=== PATIENT | male | born 1975 | race Caucasian/White ===

== ENCOUNTER → 2016-05-31 | Outpatient (CLI) | payer OTHER, BC ==
--- NOTE | 2016-06-02 13:21 | MR ---
EXAM DATE: 05/31/16 PATIENT'S AGE: 41 Patient: MORGAN ARCEO Facility: [facility] Site . Site : [id number] Study: MRI-Spine Lumbar [id number] 5:20:27 PM Ordering Physician: Abi Agudelo Final Report: Indication: Low back pain. Comparison: None. Technique: Sagittal T1, T2 and STIR sequences. Axial T1 and T2 weighted sequences. Findings: Normal vertebral body alignment. No fractures. No vertebral body loss of height. No spondylolisthesis. No ligamentous injury. Normal marrow signal. Normal conus terminates at L1. T12-L1, L1-2 and L2-3: No spinal canal or neural foraminal narrowing. L3-4: No spinal canal or neural foraminal narrowing. L4-5: Disc degeneration with loss disc height. Posterior disc bulge. No narrowing of the spinal canal. No neural foraminal narrowing. Mild bilateral facet arthropathy. L5-S1: Disk degeneration with loss of disc height. Diffuse disc bulge. No narrowing of spinal canal. No impingement of the traversing S1 nerve roots. No neural foraminal narrowing. Mild bilateral facet arthropathy. Normal paraspinal soft tissues. Impression: 1. Normal alignment. No fractures. No spondylolisthesis. 2. At L5-S1, disk degeneration with diffuse disc bulge. No narrowing of the spinal canal. No neural foraminal narrowing. 3. At L4-5, disk degeneration with posterior disk bulge. No spinal canal or neural foraminal narrowing 4. No spinal canal or neural foraminal narrowing at the remaining levels Dictated by Aubrey Mancini MD @ Jun 01 2016 8:26AM Signed by: Aubrey Mancini MD @06/01/2016 8:32:54 AM (Electronic Signature) Report Signed by Proxy and Original Signed Document filed in the Medical Record. [facility]
== END ==
LOC: MW.MRI 16:29
PROVIDERS: ATTEND Family Medicine
DX: M54.5 Low back pain (principal); M51.37 Other intervertebral disc degeneration, lumbosacral region
CPT/HCPCS: 72148; 72148-26

== ENCOUNTER → 2016-06-28 | Outpatient (CLI) | payer BC ==
--- NOTE | 2016-07-01 17:22 | NM ---
EXAM DATE: 06/28/16 PATIENT'S AGE: 41 Addendum: Additional imaging was obtained at rest following the administration of 26.4 mCi of technetium 99 M. Findings/impression: The minimal decreased uptake along the inferior wall is slightly more prominent on the stress imaging however there is also a slightly increased level of the adjacent uptake within the liver noted on the rest imaging. A trace myocardial ischemia cannot be excluded. Ejection fraction at rest is 61%. Wall motion appears unchanged. EXAMINATION: Nuclear medicine myocardial perfusion study with exercise stress test. HISTORY: Chest pain. PROCEDURE: Patient exercised according to Gm protocol for 9 minutes and 11 seconds and achieved maximal heart rate of 18 beats per minute. Adequate exercise. Following intravenous administration of 26.3 mCi of technetium 99m sestamibi, stress and rest SPECT images including gating imaging was performed. FINDINGS: Stress and rest myocardial SPECT images demonstrates minimally decreased uptake along the inferior wall, appearing source images this likely represents diaphragmatic attenuation. Review of gated images demonstrates normal wall motion, contractility and wall thickening. The left ventricular ejection fraction is 62 %. The left ventricular chamber size is normal. IMPRESSION: 1. No evidence of myocardial ischemia. 2. Normal ventricular chamber size and function with ejection fraction of 62%. MTDD
== END ==
LOC: MW.NM 08:10
PROVIDERS: ATTEND Internal Medicine
DX: R07.9 Chest pain, unspecified (principal)
CPT/HCPCS: 78451; A9500

== ENCOUNTER 2019-09-18 21:45 | Emergency (ER) | payer BC ==
[2019-09-18] MEDS ORDERED: Sodium Chloride 0.9% 2.5 ML Syringe FLUSH PRN (21:51)
[2019-09-18] MEDS ORDERED: Sodium Chloride 0.9% 10 ML Syringe FLUSH PRN (21:51)
[2019-09-18] MEDS ORDERED: Aspirin 81 MG Tab.Chew PO ONE (21:51)
--- NOTE | 2019-09-18 21:55 | EDM.PDOC ---
ED HPI GENERAL MEDICAL PROBLEM - General Chief Complaint: Chest Pain Stated Complaint: CHEST PAIN Time Seen by Provider: 09/18/19 21:51 - History of Present Illness INITIAL COMMENTS - FREE TEXT/NARRATIVE: History of present illness: [] The patient began to have left anterior chest pain at 2 PM today. Is rather constant. Is rather dull and mild. It feels like indigestion. There are no associated symptoms. He is a non-smoker. His father had a 5 vessel bypass but his father had his onset of symptomatic coronary vessel disease in older age. The patient is not treated for diabetes hypertension or cholesterol. There is i ncreased urination lately Review of systems: As per history of present illness and below otherwise all systems reviewed and negative. Past medical history: As per history of present illness and as reviewed below otherwise noncontributory. Surgical history: As per history of present illness and as reviewed below otherwise noncontributory. Social history: No reported history of drug or alcohol abuse. Family history: As per history of present illness and as reviewed below otherwise noncontributory. Physical exam: Constitutional - well developed, well-nourished and in no acute distress HEENT - normocephalic, no evidence of trauma - external nose and mouth normal - no mass in neck and no JVD - mucosae moist EYES - full EOM, PERRL, no icterus - no evidence of inflammation, injection, or drainage Respiratory - no respiratory distress, equal bilateral expansion, lungs clear to auscultation and no abnormal lung sounds Cardiovascular - Regular Rhythm with S1 and S2 appreciated and no murmur, gallop or rub. Peripheral pulses symmetrically normal in all four extremities GI - abdomen soft without distension or organomegaly - normal bowel sounds - no guard or rebound Musculoskeletal no gross deformity of long bones or joints - no tenderness, except as follows swelling or edema -tender in the rectus abdominal muscles in the left upper abdomen. Pain worse with movement. Neurologic - Alert and oriented times four - CN II-XII grossly intact - motor sensory and coordination symmetrically normal Psychiatric - appropriate mood and affect with normal thought content Hematologic - No petechiae or purpura - mucosa appropriate color and sclera not pale - normal nail bed color and refill Integument - no rash or evidence of trauma - normal turgor Diagnostics: [] Therapeutics: [] Impression: [] Plan: [] Definitive disposition and diagnosis as appropriate pending reevaluation and review of above. chest pain Pain Score (Numeric/FACES): 6 - Related Data Allergies Allergy/AdvReac Type Severity Reaction Status Date / Time No Known Allergies Allergy Verified 09/18/19 21:51 Home Meds: Home Meds Ascorbic Acid [Vitamin C] 1,000 mg PO DAILY 04/11/15 [History] Multivitamin [Multi-Vitamin Daily] 1 each PO DAILY 04/11/15 [History] Omeprazole 1 tab PO DAILY 06/02/15 [History] Past Medical History HEENT History: Reports: None Cardiovascular History: Reports: None Respiratory History: Reports: None Gastrointestinal History: Reports: GERD Genitourinary History: Reports: None Musculoskeletal History: Reports: Other (See Below) Other Musculoskeletal History: Tendon tear in left shoulder Neurological History: Reports: None Psychiatric History: Reports: None Endocrine/Metabolic History: Reports: None Hematologic History: Reports: None Immunologic History: Reports: None Oncologic (Cancer) History: Reports: None Dermatologic History: Reports: None - Infectious Disease History Infectious Disease History: Reports: None - Past Surgical History HEENT Surgical History: Reports: Oral Surgery Social & Family History - Family History Family Medical History: Noncontributory ED ROS GENERAL - Review of Systems Review Of Systems: Comprehensive ROS is negative, except as noted in HPI. ED EXAM, GENERAL - Physical Exam Exam: See Below Free Text/Narrative:: Physical exam as in the HPI EKG INTERPRETATION EKG Date: 09/18/19 Rhythm: NSR Rate (Beats/Min): 76 QRS: Normal Comparison: NA - No Prior EKG EKG Interpretation Comments: No acute injury Course - Vital Signs Last Recorded V/S: Last Vital Signs Temp 96.5 F L 09/18/19 21:45 Pulse 80 09/18/19 21:45 Resp 18 09/18/19 21:45 BP 152/83 H 09/18/19 21:45 Pulse Ox 98 09/18/19 21:45 - Orders/Labs/Meds Orders: Active Orders 24 hr Category Date Time Status Cardiac Monitoring [RC] . DIRECTED Care 09/18/19 21:51 Active EKG Documentation Completion [RC] STAT Care 09/18/19 21:51 Active Oxygen Therapy [RC] ASDIRECTED Care 09/18/19 21:51 Active Pulse Oximetry [RC] ASDIRECTED Care 09/18/19 21:51 Active Sodium Chloride 0.9% [Saline Flush] Med 09/18/19 21:51 Active 10 ml FLUSH ASDIRECTED PRN Sodium Chloride 0.9% [Saline Flush] Med 09/18/19 21:51 Active 2.5 ml FLUSH ASDIRECTED PRN Saline Lock Insert [OM.PC] Stat Oth 09/18/19 21:51 Ordered Medication Orders Sodium Chloride (Saline Flush) 10 ml FLUSH ASDIRECTED PRN PRN Reason: Keep Vein Open Sodium Chloride (Saline Flush) 2.5 ml FLUSH ASDIRECTED PRN PRN Reason: Keep Vein Open Labs: Laboratory Tests 09/18/19 09/18/19 09/18/19 Range/Units 21:51 21:51 22:00 WBC 7.97 (4.0-11.0) K/uL RBC 5.50 (4.50-5.90) M/uL Hgb 16.5 (13.0-17.0) g/dL Hct 49.7 (38.0-50.0) % MCV 90.4 (80.0-98.0) fL MCH 30.0 (27.0-32.0) pg MCHC 33.2 (31.0-37.0) g/dL RDW Std Deviation 41.3 (28.0-62.0) fl RDW Coeff of Maggy 12 (11.0-15.0) % Plt Count 244 (150-400) K/uL MPV 9.20 (7.40-12.00) fL Neut % (Auto) 64.2 (48.0-80.0) % Lymph % (Auto) 26.2 (16.0-40.0) % [facility] % (Auto) 7.8 (0.0-15.0) % Eos % (Auto) 1.3 (0.0-7.0) % Baso % (Auto) 0.5 (0.0-1.5) % Neut # (Auto) 5.1 (1.4-5.7) K/uL Lymph # (Auto) 2.1 (0.6-2.4) K/uL [facility] # (Auto) 0.6 (0.0-0.8) K/uL Eos # (Auto) 0.1 (0.0-0.7) K/uL Baso # (Auto) 0.0 (0.0-0.1) K/uL Nucleated RBC % 0.0 /100WBC Nucleated RBCs # 0 K/uL Sodium 140 (136-148) mmol/L Potassium 3.4 L (3.5-5.1) mmol/L Chloride 100 (98-107) mmol/L Carbon Dioxide 27.6 (21.0-32.0) mmol/L BUN 10 (7.0-18.0) mg/dL Creatinine 1.0 (0.8-1.3) mg/dL Est Cr Clr Drug Dosing 95.25 mL/min Estimated GFR (MDRD) > 60.0 ml/min Glucose 95 (74-106) mg/dL Calcium 9.8 (8.5-10.1) mg/dL Total Bilirubin 0.8 (0.2-1.0) mg/dL AST 27 (15-37) IU/L ALT 39 (14-63) IU/L Alkaline Phosphatase 85 (46-116) U/L Troponin I < 0.050 (0.000-0.056) ng/mL Total Protein 8.5 H (6.4-8.2) g/dL Albumin 4.6 (3.4-5.0) g/dL Globulin 3.9 (2.6-4.0) g/dL Albumin/Globulin Ratio 1.2 (0.9-1.6) Lipase 78 (73-393) U/L Urine Color YELLOW Urine Appearance CLEAR Urine pH 6.5 (5.0-8.0) Ur Specific [place] 1.025 (1.001-1.035) Urine Protein NEGATIVE (NEGATIVE) mg/dL Urine Glucose (UA) NEGATIVE (NEGATIVE) mg/dL Urine Ketones NEGATIVE (NEGATIVE) mg/dL Urine Occult Blood TRACE-INTACT H (NEGATIVE) Urine Nitrite NEGATIVE (NEGATIVE) Urine Bilirubin NEGATIVE (NEGATIVE) Urine Urobilinogen 0.2 (<2.0) EU/dL Ur Leukocyte Esterase NEGATIVE (NEGATIVE) Urine RBC 0-2 (0-2/HPF) Urine WBC 0-1 (0-5/HPF) Ur Epithelial Cells RARE (NONE-FEW) Urine Bacteria RARE (NEGATIVE) Meds: Medications Generic Name Dose Route Start Last Admin Trade Name Freq PRN Reason Stop Dose Admin Sodium Chloride 10 ml 06/30/20 21:51 Saline Flush FLUSH ASDIRECTED PRN Keep Vein Open Sodium Chloride 2.5 ml 09/18/19 21:51 Saline Flush FLUSH ASDIRECTED PRN Keep Vein Open Discontinued Medications Generic Name Dose Route Start Last Admin Trade Name Zhanna PRN Reason Stop Dose Admin Aspirin 324 mg 09/18/19 21:51 09/18/19 22:13 Aspirin PO 09/18/19 21:52 324 mg ONETIME ONE Administration Departure - Departure Time of Disposition: 22:42 Disposition: Home, Self-Care 01 Condition: Good Clinical Impression: Musculoskeletal pain - Discharge Information Instructions: Musculoskeletal Pain Forms: ED Department Discharge Additional Instructions: The following information is given to patients seen in the emergency department who are being discharged to home. This information is to outline your options for follow-up care. We provide all patients seen in our emergency department with a follow-up referral. The need for follow-up, as well as the timing and circumstances, are variable depending upon the specifics of your emergency department visit. If you don't have a primary care physician on staff, we will provide you with a referral. We always advise you to contact your personal physician following an emergency department visit to inform them of the circumstance of the visit and for follow-up with them and/or the need for any referrals to a consulting specialist. The emergency department will also refer you to a specialist when appropriate. This referral assures that you have the opportunity for follow-up care with a specialist. All of these measure are taken in an effort to provide you with optimal care, which includes your follow-up. Under all circumstances we always encourage you to contact your private physician who remains a resource for coordinating your care. When calling for follow-up care, please make the office aware that this follow-up is from your recent emergency room visit. If for any reason you are refused follow-up, please contact the [facility] Emergency Department at and asked to speak to the emergency department charge nurse. Temo Hidalgo [facility] [address] [place] [id number] [address] Sepsis Event Note (ED) - Focused Exam Vital Signs: Vital Signs Temp Pulse Resp BP Pulse Ox 09/18/19 21:45 96.5 F L 80 18 152/83 H 98 - My Orders Last 24 Hours: My Active Orders 09/18/19 21:51 Cardiac Monitoring [RC] . DIRECTED EKG Documentation Completion [RC] STAT Oxygen Therapy [RC] ASDIRECTED Pulse Oximetry [RC] ASDIRECTED Sodium Chloride 0.9% [Saline Flush] 10 ml FLUSH ASDIRECTED PRN Sodium Chloride 0.9% [Saline Flush] 2.5 ml FLUSH ASDIRECTED PRN Saline Lock Insert [OM.PC] Stat - Assessment/Plan Last 24 Hours: My Active Orders 09/18/19 21:51 Cardiac Monitoring [RC] . DIRECTED EKG Documentation Completion [RC] STAT Oxygen Therapy [RC] ASDIRECTED Pulse Oximetry [RC] ASDIRECTED Sodium Chloride 0.9% [Saline Flush] 10 ml FLUSH ASDIRECTED PRN Sodium Chloride 0.9% [Saline Flush] 2.5 ml FLUSH ASDIRECTED PRN Saline Lock Insert [OM.PC] Stat
--- NOTE | 2019-09-18 22:25 | CR ---
INDICATION: Chest pain TECHNIQUE: Chest radiograph 2 views COMPARISON: 06/02/15 FINDINGS: Mediastinum: The mediastinum is normal in appearance. The heart silhouette is normal in size and morphology. Lung: Both lungs are unremarkable in appearance. No sign of pleural effusion seen. No pneumothorax is identified. Bone and Soft tissue: Unremarkable for age. IMPRESSION: 1. No acute cardiopulmonary disease is seen. Dictated by: Alpesh Mcmahon MD @ 09/18/2019 22:23:32 (Electronically Signed)
[2019-09-18 22:32] LABS: BLOOD UREA NITROGEN,BUN 10 mg/dL (7.0-18.0); CARBON DIOXIDE,CO2 27.6 mmol/L (21.0-32.0); CHLORIDE,CL 100 mmol/L (98-107); GLUCOSE RANDOM 95 mg/dL (74-106); LIPASE 78 U/L (73-393); POTASSIUM,K 3.4 mmol/L (3.5-5.1); SODIUM,NA 140 mmol/L (136-148)
[2019-09-18 23:09] VITALS: BP 131/84; PULSE 78
== END 2019-09-18 23:05 | disposition home or self-care (01) ==
LOC: MW.ED 21:45
DX: R10.12 Left upper quadrant pain (principal); K21.9 Gastro-esophageal reflux disease without esophagitis; Z79.899 Other long term (current) drug therapy
CPT/HCPCS: 36415; 71045; 80053; 81001; 83690; 84484; 85025; 93005; 99285; A9270; 99282

== ENCOUNTER 2019-12-04 15:56 | Inpatient (IN) | payer BC ==
[2019-12-04 18:27] LABS: BLOOD UREA NITROGEN,BUN 10 mg/dL (7.0-18.0); CARBON DIOXIDE,CO2 27.9 mmol/L (21.0-32.0); CHLORIDE,CL 102 mmol/L (98-107); GLUCOSE RANDOM 98 mg/dL (74-106); POTASSIUM,K 4.1 mmol/L (3.5-5.1); SODIUM,NA 138 mmol/L (136-148)
--- NOTE | 2019-12-04 18:57 | EDM.PDOC ---
ED HPI GENERAL MEDICAL PROBLEM - General Chief Complaint: Genitourinary Problem Stated Complaint: PAIN IN BLADDER Time Seen by Provider: 12/04/19 16:49 Source of Information: Reports: Patient History Limitations: Reports: No Limitations - History of Present Illness INITIAL COMMENTS - FREE TEXT/NARRATIVE: Presents reporting dysuria and hematuria. The patient states about 10:00 this morning he had some urinary urgency and frequency as well as pain in the bladder area and then noticed blood in his urine. He had no back pain or fever. No personal or family history of kidney stones. He has never had this problem before. He states that he is sexually active with his of 25 years and has no STD concerns. He does state his had reported some dysuria/female symptoms and they did have intercourse yesterday. His only medical problem is GERD for which he takes omeprazole. bladder Pain Score (Numeric/FACES): 6 - Related Data Allergies Allergy/AdvReac Type Severity Reaction Status Date / Time No Known Allergies Allergy Verified 12/04/19 16:37 Home Meds: Home Meds Ascorbic Acid [Vitamin C] 1,000 mg PO DAILY 04/11/15 [History] Multivitamin [Multi-Vitamin Daily] 1 each PO DAILY 04/11/15 [History] Omeprazole 1 tab PO DAILY 06/02/15 [History] cephALEXin [Keflex] 500 mg PO TID 7 Days #20 capsule 12/04/19 [Rx] Past Medical History HEENT History: Reports: None Cardiovascular History: Reports: None Respiratory History: Reports: None Gastrointestinal History: Reports: GERD Genitourinary History: Reports: None Musculoskeletal History: Reports: Other (See Below) Other Musculoskeletal History: Tendon tear in left shoulder Neurological History: Reports: None Psychiatric History: Reports: None Endocrine/Metabolic History: Reports: None Insulin Pump Model and Hand Candy Dipper: None Hematologic History: Reports: None Immunologic History: Reports: None Oncologic (Cancer) History: Reports: None Dermatologic History: Reports: None - Infectious Disease History Infectious Disease History: Reports: Chicken Pox - Past Surgical History Head Surgeries/Procedures: Reports: None HEENT Surgical History: Reports: Oral Surgery Social & Family History - Family History Family Medical History: Noncontributory - Tobacco Use Smoking Status *Q: Never Smoker - Caffeine Use Caffeine Use: Reports: None - Recreational Drug Use Recreational Drug Use: No ED ROS GENERAL - Review of Systems Review Of Systems: Comprehensive ROS is negative, except as noted in HPI. ED EXAM, RENAL/ - Physical Exam Exam: See Below Exam Limited By: No Limitations General Appearance: Alert, No Apparent Distress Ears: Normal External Exam Nose: Normal Inspection Throat/Mouth: Normal Inspection Head: Atraumatic Neck: Normal Inspection Respiratory/Chest: No Respiratory Distress, Lungs Clear, Normal Breath Sounds Cardiovascular: Normal Peripheral Pulses, Regular Rate, Rhythm GI/Abdominal: Normal Bowel Sounds, Soft, Non-Tender, No Organomegaly, No Distention Course - Vital Signs Last Recorded V/S: Last Vital Signs Temp 36.4 C 12/04/19 16:38 Pulse 124 H 12/04/19 16:38 Resp 20 12/04/19 16:38 BP 132/84 12/04/19 16:38 Pulse Ox 97 12/04/19 16:38 - Orders/Labs/Meds Orders: Active Orders 24 hr Category Date Time Status Abdomen Pelvis wo Cont [CT] Stat Exams 12/04/19 17:38 Ordered Labs: Laboratory Tests 12/04/19 12/04/19 12/04/19 Range/Units 16:20 17:57 17:57 WBC 9.48 (4.0-11.0) K/uL RBC 4.79 (4.50-5.90) M/uL Hgb 14.4 (13.0-17.0) g/dL Hct 43.7 (38.0-50.0) % MCV 91.2 (80.0-98.0) fL MCH 30.1 (27.0-32.0) pg MCHC 33.0 (31.0-37.0) g/dL RDW Std Deviation 43.0 (28.0-62.0) fl RDW Coeff of Maggy 13 (11.0-15.0) % Plt Count 229 (150-400) K/uL MPV 8.40 (7.40-12.00) fL Neut % (Auto) 76.9 (48.0-80.0) % Lymph % (Auto) 13.2 L (16.0-40.0) % [place] % (Auto) 9.3 (0.0-15.0) % Eos % (Auto) 0.3 (0.0-7.0) % Baso % (Auto) 0.3 (0.0-1.5) % Neut # (Auto) 7.3 H (1.4-5.7) K/uL Lymph # (Auto) 1.3 (0.6-2.4) K/uL [place] # (Auto) 0.9 H (0.0-0.8) K/uL Eos # (Auto) 0.0 (0.0-0.7) K/uL Baso # (Auto) 0.0 (0.0-0.1) K/uL Nucleated RBC % 0.0 /100WBC Nucleated RBCs # 0 K/uL Sodium 138 (136-148) mmol/L Potassium 4.1 (3.5-5.1) mmol/L Chloride 102 (98-107) mmol/L Carbon Dioxide 27.9 (21.0-32.0) mmol/L BUN 10 (7.0-18.0) mg/dL Creatinine 0.9 (0.8-1.3) mg/dL Est Cr Clr Drug Dosing 102.39 mL/min Estimated GFR (MDRD) > 60.0 ml/min Glucose 98 (74-106) mg/dL Calcium 8.8 (8.5-10.1) mg/dL Total Bilirubin 0.7 (0.2-1.0) mg/dL AST 23 (15-37) IU/L ALT 32 (14-63) IU/L Alkaline Phosphatase 91 (46-116) U/L Total Protein 8.1 (6.4-8.2) g/dL Albumin 4.1 (3.4-5.0) g/dL Globulin 4.0 (2.6-4.0) g/dL Albumin/Globulin Ratio 1.0 (0.9-1.6) Urine Color RED Urine Appearance CLOUDY Urine pH 7.5 (5.0-8.0) Ur Specific [place] >= 1.030 (1.001-1.035) Urine Protein 100 H (NEGATIVE) mg/dL Urine Glucose (UA) NEGATIVE (NEGATIVE) mg/dL Urine Ketones NEGATIVE (NEGATIVE) mg/dL Urine Occult Blood LARGE H (NEGATIVE) Urine Nitrite NEGATIVE (NEGATIVE) Urine Bilirubin NEGATIVE (NEGATIVE) Urine Urobilinogen 0.2 (<2.0) EU/dL Ur Leukocyte Esterase NEGATIVE (NEGATIVE) Urine RBC TOO NUMEROUS TO CT (0-2/HPF) Urine WBC 3-5 (0-5/HPF) Ur Epithelial Cells RARE (NONE-FEW) Urine Bacteria RARE (NEGATIVE) Urinalysis Comment - Re-Assessments/Exams Free Text/Narrative Re-Assessment/Exam: 12/04/19 20:[address] Guan including history, lab and imaging findings. The patient does not smoke. He does complain of dysuria. He is anxious about the blood. Departure - Departure Time of Disposition: 20:08 Disposition: Home, Self-Care 01 Condition: Fair Clinical Impression: Hematuria Qualifiers: Hematuria type: gross Qualified Code(s): R31.0 - Gross hematuria - Discharge Information Referrals: Stefan Kapadia MD [Primary Care Provider] - [facility] [Outside] Additional Instructions: The following information is given to patients seen in the emergency department who are being discharged to home. This information is to outline your options for follow-up care. We provide all patients seen in our emergency department with a follow-up referral. The need for follow-up, as well as the timing and circumstances, are variable depending upon the specifics of your emergency department visit. If you don't have a primary care physician on staff, we will provide you with a referral. We always advise you to contact your personal physician following an emergency department visit to inform them of the circumstance of the visit and for follow-up with them and/or the need for any referrals to a consulting s pecialist. The emergency department will also refer you to a specialist when appropriate. This referral assures that you have the opportunity for follow-up care with a specialist. All of these measure are taken in an effort to provide you with optimal care, which includes your follow-up. Under all circumstances we always encourage you to contact your private physician who remains a resource for coordinating your care. When calling for follow-up care, please make the office aware that this follow-up is from your recent emergency room visit. If for any reason you are refused follow-up, please contact the [facility] Emergency Department at and asked to speak to the emergency department charge nurse. 1. Call Dr. Almaraz's office in the morning to make an appointment for further evaluation and management. His office has been alerted that you were seen in the emergency room tonight. 2. If you cannot urinate, return to the emergency room. 3. Although there were no concrete signs of infection in your urine and your white count was normal, take Keflex 3 times a day for 7 days or until further directed by Dr. Almaraz. 4. Drink large amounts of oral fluids to flush your bladder. 5. 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 Take as directed for bladder discomfort. Sepsis Event Note (ED) - Evaluation Sepsis Screening Result: No Definite Risk - Focused Exam Vital Signs: Vital Signs Temp Pulse Resp BP Pulse Ox 12/04/19 16:38 36.4 C 124 H 20 132/84 97 - My Orders Last 24 Hours: My Active Orders 12/04/19 17:38 Abdomen Pelvis wo Cont [CT] Stat - Assessment/Plan Last 24 Hours: My Active Orders 12/04/19 17:38 Abdomen Pelvis wo Cont [CT] Stat
--- NOTE | 2019-12-04 19:09 | CT ---
CT abdomen and pelvis Technique: Multiple axial sections were obtained from below the dome of the diaphragm inferiorly through the pubic symphysis. Intravenous contrast and oral contrast not utilized. Findings: Kidneys show no abnormal calcifications. No ureteral dilatation or ureteral stone is seen. Bladder is not well distended. There is slight haziness around the bladder as well as bladder wall thickening. Difficult to exclude cystitis but please correlate with the patient's symptoms as this may relate to under distention. Visualized lung bases shows nothing acute. Noncontrast appearance of the liver shows fatty infiltration. Spleen appears normal in size. Adrenal glands show no nodule. Pancreas shows no discrete abnormality. Gallbladder contains no calcified gallstones. Aorta shows no aneurysm. No retroperitoneal adenopathy or mesenteric abnormalities are seen. Appendix is seen and appears normal in size. No pelvic mass or adenopathy is seen. Bone window settings were reviewed which appear within normal limits for the patient's age. Impression: 1. No renal calculi, ureteral dilatation or ureteral stone is seen. 2. Slight haziness around the bladder is seen as well as slight bladder wall thickening. This could represent cystitis and please correlate with the patient's symptoms as findings could also relate to lack of distention. 3. Other nonacute findings as noted above. Diagnostic code #3 This report was dictated in MDT
[2019-12-04] MEDS ORDERED: fentaNYL 100 MCG/2 ML SDV IVPUSH ONE (19:58)
[2019-12-04] MEDS ORDERED: Sodium Chloride 0.9% 1,000 ML IV ONE ×2 (19:58→22:31)
[2019-12-04] MEDS ORDERED: Cephalexin 500 MG Cap PO ONE (19:59)
[2019-12-04] MEDS ORDERED: Morphine 4 MG/ML Syringe IVPUSH ONE (23:01)
[2019-12-04] MEDS ORDERED: Metoprolol Tartrate 5 MG in Sodium Chloride 0.9% 50 ML IV ONE (23:01)
[2019-12-04] MEDS ORDERED: Metoprolol Tartrate 5 MG/5 ML SDV ONE (23:08)
[2019-12-04] MEDS ORDERED: Metoprolol Tartrate 5 MG/5 ML SDV IVPUSH ONE (23:29)
[2019-12-05] MEDS ORDERED: cefTRIAXone 1 GM in Premix Bag 1 BAG IV ONE (01:30)
[2019-12-05] MEDS: Morphine 2 MG/ML SYRINGE IVPUSH PRN ×3 (02:37→09:15)
[2019-12-05] MEDS: Sodium Chloride 0.9% 1,000 ML IV SCH ×2 (02:41→10:51)
[2019-12-05 05:48] LABS: BLOOD UREA NITROGEN,BUN 10 mg/dL (7.0-18.0); CARBON DIOXIDE,CO2 26.6 mmol/L (21.0-32.0); CHLORIDE,CL 100 mmol/L (98-107); GLUCOSE RANDOM 118 mg/dL (74-106); SODIUM,NA 137 mmol/L (136-148)
[2019-12-05] MEDS: Acetaminophen 500 MG Tab PO PRN ×2 (08:35→21:25)
[2019-12-05] MEDS ORDERED: Azithromycin 250 MG Tab PO ONE (09:55)
--- NOTE | 2019-12-05 11:28 | PCM.HP.2 ---
H&P History of Present Illness - General Date of Service: 12/05/19 Admit Problem/Dx: Admission Diagnosis/Problem Admission Diagnosis/Problem Hematuria Source of Information: Patient History Limitations: Reports: No Limitations - History of Present Illness Initial Comments - Free Text/Narative: Patient is a 44 y.o male w. no significant PMH except GERD , presenting overnight with worsening hematuria and dysuria. MEntions sudden onset of baldder pain, hematuria and mid-stream pain yesterday; proceeded to the ED. ED course: found to be mildly tachycardic and given bolus of 1-liter NS+ 1 gram CTX and 5 mg Lopressor with improvement of tachycardia EKG: Sinus tachycardia w.o st elevation/depression CT abdomen/pelvis: slight haziness noted around bladder; possible cystitis. NO urethral stones/dilation appreciated Bedside: pt. mentions some subjective fevers and improvement of bladder pain; c.o dysuria and color of urine improving States having intercourse with 2 -days prior and mentions also was having some dysuria prior to his symptoms Not concerned about STI as he has been monogamous with his bladder Pain Score (Numeric/FACES): 5 - Related Data Allergies/Adverse Reactions: Allergies Allergy/AdvReac Type Severity Reaction Status Date / Time No Known Allergies Allergy Verified 12/05/19 03:04 Home Medications: Home Meds Ascorbic Acid [Vitamin C] 1,000 mg PO DAILY 04/11/15 [History] Multivitamin [Multi-Vitamin Daily] 1 each PO DAILY 04/11/15 [History] Omeprazole 1 tab PO DAILY 06/02/15 [History] Hydrocodone/Acetaminophen [Hydrocodone-Acetamin 10-325 mg] 1 tab PO Q8HR PRN #12 tablet 12/04/19 [Rx] cephALEXin [Keflex] 500 mg PO TID #20 capsule 12/04/19 [Rx] Past Medical History HEENT History: Reports: None Cardiovascular History: Reports: None Respiratory History: Reports: None Gastrointestinal History: Reports: GERD Genitourinary History: Reports: None Musculoskeletal History: Reports: Other (See Below) Other Musculoskeletal History: Tendon tear in left shoulder Neurological History: Reports: None Psychiatric History: Reports: None Endocrine/Metabolic History: Reports: None Insulin Pump Model and Manager Copy: None Hematologic History: Reports: None Immunologic History: Reports: None Oncologic (Cancer) History: Reports: None Dermatologic History: Reports: None - Infectious Disease History Infectious Disease History: Reports: Chicken Pox - Past Surgical History Head Surgeries/Procedures: Reports: None HEENT Surgical History: Reports: Oral Surgery Social & Family History - Family History Family Medical History: Noncontributory - Tobacco Use Smoking Status *Q: Never Smoker Second Hand Smoke Exposure: Yes - Caffeine Use Caffeine Use: Reports: None - Recreational Drug Use Recreational Drug Use: No H&P Review of Systems - Review of Systems: Review Of Systems: See Below General: Reports: Fever. Denies: Chills, Malaise, Weakness, Fatigue HEENT: Reports: No Symptoms Pulmonary: Reports: No Symptoms Cardiovascular: Reports: No Symptoms Gastrointestinal: Reports: No Symptoms Genitourinary: Reports: Dysuria, Burning, Pain, Hematuria. Denies: Urgency, Discharge, Retention, Flank Pain Musculoskeletal: Reports: No Symptoms Skin: Reports: No Symptoms Psychiatric: Reports: No Symptoms Neurological: Reports: No Symptoms Exam - Exam Exam: See Below - Vital Signs Vital Signs: Last Vital Signs Temp 104.2 F H 12/05/19 08:35 Pulse 121 H 12/05/19 08:00 Resp 20 12/05/19 08:00 BP 122/59 L 12/05/19 08:00 Pulse Ox 93 L 12/05/19 08:00 Weight: 104.236 kg - Exam General: Alert, Oriented HEENT: EOMI Neck: Supple, Trachea Midline Lungs: Clear to Auscultation, Normal Respiratory Effort Cardiovascular: Regular Rate, Regular Rhythm GI/Abdominal Exam: Soft, Non-Tender (Male) Exam: Other (mild suprapubic tenderness, no flank tenderness ). No: Scrotal Swelling, Scrotum Tenderness (L), Suprapubic Fullness, Testicular Mass, Testicular Tenderness (L), Testicular Tenderness (R) Back Exam: No: CVA Tenderness (L), CVA Tenderness (R) Neurological: Cranial Nerves Intact Neuro Extensive - Mental Status: Alert, Oriented x3, Normal Mood/Affect - Patient Data Lab Results Last 24 hrs: Laboratory Results - last 24 hr 12/04/19 12/04/19 12/04/19 Range/Units 16:20 17:57 17:57 WBC 9.48 (4.0-11.0) K/uL RBC 4.79 (4.50-5.90) M/uL Hgb 14.4 (13.0-17.0) g/dL Hct 43.7 (38.0-50.0) % MCV 91.2 (80.0-98.0) fL MCH 30.1 (27.0-32.0) pg MCHC 33.0 (31.0-37.0) g/dL RDW Std Deviation 43.0 (28.0-62.0) fl RDW Coeff of Maggy 13 (11.0-15.0) % Plt Count 229 (150-400) K/uL MPV 8.40 (7.40-12.00) fL Neut % (Auto) 76.9 (48.0-80.0) % Lymph % (Auto) 13.2 L (16.0-40.0) % [place] % (Auto) 9.3 (0.0-15.0) % Eos % (Auto) 0.3 (0.0-7.0) % Baso % (Auto) 0.3 (0.0-1.5) % Neut # (Auto) 7.3 H (1.4-5.7) K/uL Lymph # (Auto) 1.3 (0.6-2.4) K/uL [place] # (Auto) 0.9 H (0.0-0.8) K/uL Eos # (Auto) 0.0 (0.0-0.7) K/uL Baso # (Auto) 0.0 (0.0-0.1) K/uL Nucleated RBC % 0.0 /100WBC Nucleated RBCs # 0 K/uL Lactate (0.20-2.00) mmol/L Sodium 138 (136-148) mmol/L Potassium 4.1 (3.5-5.1) mmol/L Chloride 102 (98-107) mmol/L Carbon Dioxide 27.9 (21.0-32.0) mmol/L BUN 10 (7.0-18.0) mg/dL Creatinine 0.9 (0.8-1.3) mg/dL Est Cr Clr Drug Dosing 102.39 mL/min Estimated GFR (MDRD) > 60.0 ml/min Glucose 98 (74-106) mg/dL Calcium 8.8 (8.5-10.1) mg/dL Total Bilirubin 0.7 (0.2-1.0) mg/dL AST 23 (15-37) IU/L ALT 32 (14-63) IU/L Alkaline Phosphatase 91 (46-116) U/L Creatine Kinase (26-308) U/L Troponin I (0.000-0.056) ng/mL Total Protein 8.1 (6.4-8.2) g/dL Albumin 4.1 (3.4-5.0) g/dL Globulin 4.0 (2.6-4.0) g/dL Albumin/Globulin Ratio 1.0 (0.9-1.6) Urine Color RED Urine Appearance CLOUDY Urine pH 7.5 (5.0-8.0) Ur Specific [place] >= 1.030 (1.001-1.035) Urine Protein 100 H (NEGATIVE) mg/dL Urine Glucose (UA) NEGATIVE (NEGATIVE) mg/dL Urine Ketones NEGATIVE (NEGATIVE) mg/dL Urine Occult Blood LARGE H (NEGATIVE) Urine Nitrite NEGATIVE (NEGATIVE) Urine Bilirubin NEGATIVE (NEGATIVE) Urine Urobilinogen 0.2 (<2.0) EU/dL Ur Leukocyte Esterase NEGATIVE (NEGATIVE) Urine RBC TOO NUMEROUS TO CT (0-2/HPF) Urine WBC 3-5 (0-5/HPF) Ur Epithelial Cells RARE (NONE-FEW) Urine Bacteria RARE (NEGATIVE) Urinalysis Comment SARS-CoV-2 RNA (RUIZ) (NEGATIVE) 12/05/19 12/05/19 12/05/19 Range/Units 00:38 00:38 00:40 WBC (4.0-11.0) K/uL RBC (4.50-5.90) M/uL Hgb (13.0-17.0) g/dL Hct (38.0-50.0) % MCV (80.0-98.0) fL MCH (27.0-32.0) pg MCHC (31.0-37.0) g/dL RDW Std Deviation (28.0-62.0) fl RDW Coeff of Maggy (11.0-15.0) % Plt Count (150-400) K/uL MPV (7.40-12.00) fL Neut % (Auto) (48.0-80.0) % Lymph % (Auto) (16.0-40.0) % [place] % (Auto) (0.0-15.0) % Eos % (Auto) (0.0-7.0) % Baso % (Auto) (0.0-1.5) % Neut # (Auto) (1.4-5.7) K/uL Lymph # (Auto) (0.6-2.4) K/uL [place] # (Auto) (0.0-0.8) K/uL Eos # (Auto) (0.0-0.7) K/uL Baso # (Auto) (0.0-0.1) K/uL Nucleated RBC % /100WBC Nucleated RBCs # K/uL Lactate 1.0 (0.20-2.00) mmol/L Sodium (136-148) mmol/L Potassium (3.5-5.1) mmol/L Chloride (98-107) mmol/L Carbon Dioxide (21.0-32.0) mmol/L BUN (7.0-18.0) mg/dL Creatinine (0.8-1.3) mg/dL Est Cr Clr Drug Dosing mL/min Estimated GFR (MDRD) ml/min Glucose (74-106) mg/dL Calcium (8.5-10.1) mg/dL Total Bilirubin (0.2-1.0) mg/dL AST (15-37) IU/L ALT (14-63) IU/L Alkaline Phosphatase (46-116) U/L Creatine Kinase (26-308) U/L Troponin I < 0.050 (0.000-0.056) ng/mL Total Protein (6.4-8.2) g/dL Albumin (3.4-5.0) g/dL Globulin (2.6-4.0) g/dL Albumin/Globulin Ratio (0.9-1.6) Urine Color Urine Appearance Urine pH (5.0-8.0) Ur Specific Mason (1.001-1.035) Urine Protein (NEGATIVE) mg/dL Urine Glucose (UA) (NEGATIVE) mg/dL Urine Ketones (NEGATIVE) mg/dL Urine Occult Blood (NEGATIVE) Urine Nitrite (NEGATIVE) Urine Bilirubin (NEGATIVE) Urine Urobilinogen (<2.0) EU/dL Ur Leukocyte Esterase (NEGATIVE) Urine RBC (0-2/HPF) Urine WBC (0-5/HPF) Ur Epithelial Cells (NONE-FEW) Urine Bacteria (NEGATIVE) Urinalysis Comment SARS-CoV-2 RNA (RUIZ) NEGATIVE (NEGATIVE) 12/05/19 12/05/19 12/05/19 Range/Units 05:17 05:17 05:17 WBC 11.53 H (4.0-11.0) K/uL RBC 4.48 L (4.50-5.90) M/uL Hgb 13.4 (13.0-17.0) g/dL Hct 40.6 (38.0-50.0) % MCV 90.6 (80.0-98.0) fL MCH 29.9 (27.0-32.0) pg MCHC 33.0 (31.0-37.0) g/dL RDW Std Deviation 43.2 (28.0-62.0) fl RDW Coeff of Maggy 13 (11.0-15.0) % Plt Count 221 (150-400) K/uL MPV 8.50 (7.40-12.00) fL Neut % (Auto) 79.5 (48.0-80.0) % Lymph % (Auto) 12.8 L (16.0-40.0) % [place] % (Auto) 7.4 (0.0-15.0) % Eos % (Auto) 0.0 (0.0-7.0) % Baso % (Auto) 0.3 (0.0-1.5) % Neut # (Auto) 9.2 H (1.4-5.7) K/uL Lymph # (Auto) 1.5 (0.6-2.4) K/uL [place] # (Auto) 0.9 H (0.0-0.8) K/uL Eos # (Auto) 0.0 (0.0-0.7) K/uL Baso # (Auto) 0.0 (0.0-0.1) K/uL Nucleated RBC % 0.0 /100WBC Nucleated RBCs # 0 K/uL Lactate (0.20-2.00) mmol/L Sodium 137 (136-148) mmol/L Potassium 4.0 (3.5-5.1) mmol/L Chloride 100 (98-107) mmol/L Carbon Dioxide 26.6 (21.0-32.0) mmol/L BUN 10 (7.0-18.0) mg/dL Creatinine 1.2 (0.8-1.3) mg/dL Est Cr Clr Drug Dosing 76.79 mL/min Estimated GFR (MDRD) > 60.0 ml/min Glucose 118 H (74-106) mg/dL Calcium 8.1 L (8.5-10.1) mg/dL Total Bilirubin (0.2-1.0) mg/dL AST (15-37) IU/L ALT (14-63) IU/L Alkaline Phosphatase (46-116) U/L Creatine Kinase 62 (26-308) U/L Troponin I (0.000-0.056) ng/mL Total Protein (6.4-8.2) g/dL Albumin (3.4-5.0) g/dL Globulin (2.6-4.0) g/dL Albumin/Globulin Ratio (0.9-1.6) Urine Color Urine Appearance Urine pH (5.0-8.0) Ur Specific Mason (1.001-1.035) Urine Protein (NEGATIVE) mg/dL Urine Glucose (UA) (NEGATIVE) mg/dL Urine Ketones (NEGATIVE) mg/dL Urine Occult Blood (NEGATIVE) Urine Nitrite (NEGATIVE) Urine Bilirubin (NEGATIVE) Urine Urobilinogen (<2.0) EU/dL Ur Leukocyte Esterase (NEGATIVE) Urine RBC (0-2/HPF) Urine WBC (0-5/HPF) Ur Epithelial Cells (NONE-FEW) Urine Bacteria (NEGATIVE) Urinalysis Comment SARS-CoV-2 RNA (RUIZ) (NEGATIVE) Result Diagrams: 12/05/19 05:17 12/05/19 05:17 Sepsis Event Note - Evaluation Sepsis Screening Result: Sepsis Risk - Focused Exam Vital Signs: Vital Signs Temp Temp Pulse Pulse Resp BP BP 12/05/19 08:35 104.2 F H 12/05/19 08:00 104.2 F H 121 H 20 122/59 L 12/05/19 02:34 100.8 F H 121 H 16 117/71 12/05/19 02:05 123 H 14 110/67 12/05/19 01:02 128 H 14 121/72 12/04/19 23:39 125 H 14 115/53 L 12/04/19 23:35 126 H 115/53 L Pulse Ox 12/05/19 08:35 12/05/19 08:00 93 L 12/05/19 02:34 95 12/05/19 02:05 97 12/05/19 01:02 96 12/04/19 23:39 94 L 12/04/19 23:35 Problem List Initiated/Reviewed/Updated: Yes Orders Last 24hrs: Active Orders 24 hr Category Date Time Status Patient Status [ADT] Routine ADT 12/05/19 00:30 Active EKG 12 Lead [EKG Documentation Completion] [RC] STAT Care 12/04/19 22:42 Active Telemetry Monitoring [Cardiac Monitoring] [RC] Q8H Care 12/05/19 01:11 Active Regular Diet [DIET] Diet 12/05/19 Breakfast Active CHLAMYDIA AND GONORRHEA BY TMA Routine Lab 12/05/19 10:55 Received CULTURE BLOOD [BC] Stat Lab 12/05/19 07:55 Received CULTURE BLOOD [BC] Stat Lab 12/05/19 08:00 Received CULTURE URINE [RM] Routine Lab 12/05/19 01:18 Received Acetaminophen [Tylenol Extra Strength] Med 12/05/19 07:36 Active 500 mg PO Q4H PRN Morphine Med 12/05/19 01:14 Active 2 mg IVPUSH Q3H PRN Sodium Chloride 0.9% [Normal Saline] 1,000 ml Med 12/05/19 01:15 Active IV ASDIRECTED cefTRIAXone [Rocephin in Dextrose,Iso-Osm 1 GM/50 ML] 1 Med 12/05/19 21:00 Active gm Premix Bag 1 bag IV Q24H Blood Culture x2 Reflex Set [OM.PC] Stat Oth 12/05/19 07:35 Ordered Medication Orders Acetaminophen (Tylenol Extra Strength) 500 mg PO Q4H PRN PRN Reason: Fever Last Admin: 12/05/19 08:35 Dose: 500 mg Documented by: MARIE Ceftriaxone Sodium/Dextrose 1 (gm/ Premix) 50 mls @ 100 mls/hr IV Q24H [facility] Sodium Chloride (Normal Saline) 1,000 mls @ 125 mls/hr IV ASDIRECTED [facility] Last Admin: 12/05/19 10:51 Dose: 125 mls/hr Documented by: Infusion: 12/05/19 10:41 Dose: 125 mls/hr Documented by: Admin: 12/05/19 02:41 Dose: 125 mls/hr Documented by: EVON Morphine Sulfate (Morphine) 2 mg IVPUSH Q3H PRN PRN Reason: Pain Last Admin: 12/05/19 09:15 Dose: 2 mg Documented by: Admin: 12/05/19 05:17 Dose: 2 mg Documented by: Admin: 12/05/19 02:37 Dose: 2 mg Documented by: EVON Assessment/Plan Comment:: Assessment: 1. Dysuria/hematuria 2. +UTI 3. Fever in setting of above 4. PMH: GERD Plan Admit to observation. Full code Diet: regular I/O's per routine Vitals per routine up ad hemant 1. Continue Ceftriaxone, will consult urology regarding switching/broadening abx. coverage. Continue Tylenol PRN fever/pain control. Morphine for pain control Bcx ordered Ucx ordered. Will adjust accordingly Ordered a GC/CH for completeness; this is a send-out; will add on 1 gm of Azithromycin as ewll to cover for STI concerns 2. Continue to observe patient
[2019-12-05] MEDS ORDERED: Levofloxacin/Dextrose 5%-Water 750 MG in Premix Bag 1 BAG IV SCH (12:15)
[2019-12-05] MEDS ORDERED: Sodium Chloride 0.9% 1,000 ML IV ONE (16:56)
[2019-12-05] MEDS ORDERED: cefTRIAXone 1 GM in Premix Bag 1 BAG IV SCH (21:00)
[2019-12-06 07:30] LABS: BLOOD UREA NITROGEN,BUN 8 mg/dL (7.0-18.0); CARBON DIOXIDE,CO2 24.2 mmol/L (21.0-32.0); CHLORIDE,CL 103 mmol/L (98-107); GLUCOSE RANDOM 98 mg/dL (74-106); POTASSIUM,K 3.2 mmol/L (3.5-5.1); SODIUM,NA 137 mmol/L (136-148)
[2019-12-06] MEDS: Sodium Chloride 0.9% 1,000 ML IV SCH ×3 (07:30→23:38)
[2019-12-06] MEDS ORDERED: Potassium Chloride 20 MEQ Tab.ER PO ONE (07:47)
[2019-12-06] MEDS: Acetaminophen 500 MG Tab PO PRN ×2 (07:58→19:15)
[2019-12-06] MEDS: cefTRIAXone 2 GM in Premix Bag 1 BAG IV SCH (11:00)
--- NOTE | 2019-12-06 12:32 | PCM.PN ---
<Rhoda Fuller - Last Filed: 12/06/19 13:15> - General Info Date of Service: 12/06/19 Subjective Update: Bedside: 3-4 loose stools since last night . Feels like his fever broke and having some chills. Otherwise mentions color of urine has gone from "Cranberry juice to apple juice" and dyuria is still present but improved Functional Status: Reports: Pain Controlled - Review of Systems General: Reports: Chills. Denies: Fever HEENT: Reports: No Symptoms Pulmonary: Reports: No Symptoms Cardiovascular: Reports: No Symptoms Gastrointestinal: Reports: Diarrhea. Denies: Abdominal Pain, Constipation, Decreased Appetite Genitourinary: Reports: Dysuria, Frequency. Denies: Pain, Urgency Musculoskeletal: Reports: No Symptoms Skin: Reports: No Symptoms Neurological: Reports: No Symptoms - Patient Data Vitals - Most Recent: Last Vital Signs Temp 98.1 F 12/06/19 08:00 Pulse 105 H 12/06/19 08:00 Resp 16 12/06/19 08:00 BP 117/69 12/06/19 08:00 Pulse Ox 91 L 12/06/19 08:00 Weight - Most Recent: 104.236 kg I&O - Last 24 Hours: Intake & Output 12/05/19 12/06/19 12/06/19 22:59 06:59 14:59 Intake Total 2 820 Output Total 1825 1470 Balance 197 -650 Lab Results Last 24 Hours: Laboratory Results - last 24 hr 12/06/19 12/06/19 12/06/19 Range/Units 06:08 06:08 10:45 WBC 13.29 H (4.0-11.0) K/uL RBC 4.34 L (4.50-5.90) M/uL Hgb 12.9 L (13.0-17.0) g/dL Hct 39.4 (38.0-50.0) % MCV 90.8 (80.0-98.0) fL MCH 29.7 (27.0-32.0) pg MCHC 32.7 (31.0-37.0) g/dL RDW Std Deviation 44.1 (28.0-62.0) fl RDW Coeff of Maggy 13 (11.0-15.0) % Plt Count 217 (150-400) K/uL MPV 8.90 (7.40-12.00) fL Neut % (Auto) 76.2 (48.0-80.0) % Lymph % (Auto) 14.4 L (16.0-40.0) % [place] % (Auto) 9.2 (0.0-15.0) % Eos % (Auto) 0.0 (0.0-7.0) % Baso % (Auto) 0.2 (0.0-1.5) % Neut # (Auto) 10.1 H (1.4-5.7) K/uL Lymph # (Auto) 1.9 (0.6-2.4) K/uL [place] # (Auto) 1.2 H (0.0-0.8) K/uL Eos # (Auto) 0.0 (0.0-0.7) K/uL Baso # (Auto) 0.0 (0.0-0.1) K/uL Nucleated RBC % 0.0 /100WBC Nucleated RBCs # 0 K/uL Lactate 1.2 (0.20-2.00) mmol/L Sodium 137 (136-148) mmol/L Potassium 3.2 L (3.5-5.1) mmol/L Chloride 103 (98-107) mmol/L Carbon Dioxide 24.2 (21.0-32.0) mmol/L BUN 8 (7.0-18.0) mg/dL Creatinine 0.9 (0.8-1.3) mg/dL Est Cr Clr Drug Dosing 102.39 mL/min Estimated GFR (MDRD) > 60.0 ml/min Glucose 98 (74-106) mg/dL Calcium 7.9 L (8.5-10.1) mg/dL Kwaku Results Last 24 Hours: Microbiology 12/05/19 08:00 Aerobic Blood Culture - Preliminary Blood - Venous - Lab Draw NO GROWTH AFTER 1 DAY Anaerobic Blood Culture - Preliminary NO GROWTH AFTER 1 DAY 12/05/19 07:55 Aerobic Blood Culture - Preliminary Blood - Venous NO GROWTH AFTER 1 DAY Anaerobic Blood Culture - Preliminary NO GROWTH AFTER 1 DAY Med Orders - Current: Current Medications Acetaminophen (Tylenol Extra Strength) 500 mg PO Q4H PRN PRN Reason: Fever Last Admin: 12/06/19 07:58 Dose: 500 mg Documented by: Sodium Chloride (Normal Saline) 1,000 mls @ 125 mls/hr IV ASDIRECTED [facility] Last Admin: 12/06/19 07:30 Dose: 500 mls/hr Documented by: Ceftriaxone Sodium/Dextrose 2 (gm/ Premix) 50 mls @ 100 mls/hr IV Q24H [facility] Last Admin: 12/06/19 11:00 Dose: 100 mls/hr Documented by: Morphine Sulfate (Morphine) 2 mg IVPUSH Q3H PRN PRN Reason: Pain Last Admin: 12/05/19 09:15 Dose: 2 mg Documented by: Discontinued Medications Azithromycin (Zithromax) 1,000 mg PO ONETIME ONE Stop: 12/05/19 09:56 Last Admin: 12/05/19 10:52 Dose: 1,000 mg Documented by: Cephalexin (Keflex) 500 mg PO ONETIME ONE Stop: 12/04/19 20:00 Last Admin: 12/04/19 20:37 Dose: 500 mg Documented by: Fentanyl (Sublimaze) 50 mcg IVPUSH ONETIME ONE Stop: 12/04/19 19:59 Last Admin: 12/04/19 20:35 Dose: 50 mcg Documented by: Sodium Chloride (Normal Saline) 1,000 mls @ 999 mls/hr IV STAT ONE Stop: 12/04/19 20:58 Last Admin: 12/04/19 20:30 Dose: 999 mls/hr Documented by: Sodium Chloride (Normal Saline) 1,000 mls @ 999 mls/hr IV .BOLUS ONE Stop: 12/04/19 23:31 Last Admin: 12/04/19 23:14 Dose: 999 mls/hr Documented by: Metoprolol Tartrate 5 mg/ (Sodium Chloride) 55 mls @ 100 mls/hr IV ONETIME ONE Stop: 12/04/19 23:33 Last Admin: 12/04/19 23:29 Dose: Not Given Documented by: Ceftriaxone Sodium/Dextrose 1 (gm/ Premix) 50 mls @ 100 mls/hr IV Q24H [facility] Ceftriaxone Sodium/Dextrose 1 (gm/ Premix) 50 mls @ 100 mls/hr IV ONETIME ONE Stop: 12/05/19 01:59 Last Admin: 12/05/19 02:40 Dose: 100 mls/hr Documented by: Levofloxacin/Dextrose 750 mg/ (Premix) 150 mls @ 100 mls/hr IV Q24H [facility] Last Infusion: 12/05/19 17:28 Dose: Infused Documented by: Sodium Chloride (Normal Saline) 1,000 mls @ 500 mls/hr IV BOLUS ONE Stop: 12/05/19 18:55 Last Admin: 12/05/19 18:10 Dose: 500 mls/hr Documented by: Metoprolol Tartrate (Lopressor) Confirm Administered Dose 5 mg .ROUTE .STK-MED ONE Stop: 12/04/19 23:09 Last Admin: 12/04/19 23:24 Dose: Not Given Documented by: Metoprolol Tartrate (Lopressor) 5 mg IVPUSH ONETIME ONE Stop: 12/04/19 23:30 Last Admin: 12/04/19 23:35 Dose: 5 mg Documented by: Morphine Sulfate (Morphine) 4 mg IVPUSH ONETIME ONE Stop: 12/04/19 23:02 Last Admin: 12/04/19 23:15 Dose: 4 mg Documented by: Potassium Chloride (Klor-Con M20) 40 meq PO ONETIME ONE Stop: 12/06/19 07:48 Last Admin: 12/06/19 08:21 Dose: 40 meq Documented by: - Exam Quality Assessment: No: Supplemental Oxygen General: Alert, Oriented, Cooperative, No Acute Distress HEENT: EOMI Neck: Supple Lungs: Clear to Auscultation, Normal Respiratory Effort Cardiovascular: Regular Rate, Regular Rhythm GI/Abdominal Exam: Soft, Non-Tender Back Exam: Normal Inspection Extremities: Normal Inspection Skin: Warm Wound/Incisions: Healing Well Neurological: No New Focal Deficit Psy/Mental Status: Alert, Normal Mood Sepsis Event Note - Evaluation Sepsis Screening Result: Sepsis Risk - Focused Exam Vital Signs: Vital Signs Temp Pulse Resp BP Pulse Ox 12/06/19 08:00 98.1 F 105 H 16 117/69 91 L 12/06/19 04:26 99.7 F 109 H 15 119/73 93 L 12/06/19 00:44 97.9 F 100 16 107/63 96 - Problem List Review Problem List Initiated/Reviewed/Updated: Yes - My Orders Last 24 Hours: My Active Orders 12/05/19 12:13 Consult to Physician [CONS] Routine 12/05/19 12:14 Notify Provider Consults [RC] ASDIRECTED 12/07/19 05:11 BMP [BASIC METABOLIC PANEL,BMP] [CHEM] AM CBC WITH AUTO DIFF [HEME] AM 12/08/19 05:11 BMP [BASIC METABOLIC PANEL,BMP] [CHEM] AM CBC WITH AUTO DIFF [HEME] AM - Plan Plan:: Assessment: 1. Dysuria/hematuria 2. +UTI /Complicated 3. Fever in setting of above 4. PMH: GERD 5. Diarrhea Plan Switched to inpatient status . Full code Diet: regular I/O's per routine Vitals per routine up ad hemant 1. Since white count had gone up from to , switched to Rocephin 2 grams for now; can adjust again once culture is finalized with sensitivities Continue Tylenol PRN fever/pain control. Morphine for pain control Dr Almaraz of urology consulted; will await for any further recommendations We appreciate his assistance with this patient repeat lactate was within normal limits Bcx : negative x 1-day Ucx ordered. Will adjust accordingly Ordered a GC/CH for completeness; this is a send-out; 1 gm of Azithromycin already given on admission Diarrhea: 3 loose stools: c.diff stool studies ordered Hypokalemia: 40 meq provided 2. Continue to observe patient <Ramon Coto - Last Filed: 12/08/19 13:40> - Patient Data Vitals - Most Recent: Last Vital Signs Temp 36.4 C 12/07/19 11:28 Pulse 94 12/07/19 11:28 Resp 16 12/07/19 11:28 BP 135/73 12/07/19 11:28 Pulse Ox 95 12/07/19 11:28 [place]aku Results Last 24 Hours: Microbiology 12/05/19 08:00 Aerobic Blood Culture - Preliminary Blood - Venous - Lab Draw NO GROWTH AFTER 3 DAYS Anaerobic Blood Culture - Preliminary NO GROWTH AFTER 3 DAYS 12/05/19 07:55 Aerobic Blood Culture - Preliminary Blood - Venous NO GROWTH AFTER 3 DAYS Anaerobic Blood Culture - Preliminary NO GROWTH AFTER 3 DAYS Med Orders - Current: Current Medications Discontinued Medications Acetaminophen (Tylenol Extra Strength) 500 mg PO Q4H PRN PRN Reason: Fever Last Admin: 12/07/19 08:12 Dose: 500 mg Documented by: Azithromycin (Zithromax) 1,000 mg PO ONETIME ONE Stop: 12/05/19 09:56 Last Admin: 12/05/19 10:52 Dose: 1,000 mg Documented by: Cephalexin (Keflex) 500 mg PO ONETIME ONE Stop: 12/04/19 20:00 Last Admin: 12/04/19 20:37 Dose: 500 mg Documented by: Fentanyl (Sublimaze) 50 mcg IVPUSH ONETIME ONE Stop: 12/04/19 19:59 Last Admin: 12/04/19 20:35 Dose: 50 mcg Documented by: Sodium Chloride (Normal Saline) 1,000 mls @ 999 mls/hr IV STAT ONE Stop: 12/04/19 20:58 Last Admin: 12/04/19 20:30 Dose: 999 mls/hr Documented by: Sodium Chloride (Normal Saline) 1,000 mls @ 999 mls/hr IV .BOLUS ONE Stop: 12/04/19 23:31 Last Admin: 12/04/19 23:14 Dose: 999 mls/hr Documented by: Metoprolol Tartrate 5 mg/ (Sodium Chloride) 55 mls @ 100 mls/hr IV ONETIME ONE Stop: 12/04/19 23:33 Last Admin: 12/04/19 23:29 Dose: Not Given Documented by: Ceftriaxone Sodium/Dextrose 1 (gm/ Premix) 50 mls @ 100 mls/hr IV Q24H [facility] Sodium Chloride (Normal Saline) 1,000 mls @ 125 mls/hr IV ASDIRECTED [facility] Last Admin: 12/07/19 07:41 Dose: 125 mls/hr Documented by: Ceftriaxone Sodium/Dextrose 1 (gm/ Premix) 50 mls @ 100 mls/hr IV ONETIME ONE Stop: 12/05/19 01:59 Last Admin: 12/05/19 02:40 Dose: 100 mls/hr Documented by: Levofloxacin/Dextrose 750 mg/ (Premix) 150 mls @ 100 mls/hr IV Q24H [facility] Last Infusion: 12/05/19 17:28 Dose: Infused Documented by: Sodium Chloride (Normal Saline) 1,000 mls @ 500 mls/hr IV BOLUS ONE Stop: 12/05/19 18:55 Last Admin: 12/05/19 18:10 Dose: 500 mls/hr Documented by: Ceftriaxone Sodium/Dextrose 2 (gm/ Premix) 50 mls @ 100 mls/hr IV Q24H [facility] Last Admin: 12/07/19 10:32 Dose: 100 mls/hr Documented by: Metoprolol Tartrate (Lopressor) Confirm Administered Dose 5 mg .ROUTE .STK-MED ONE Stop: 12/04/19 23:09 Last Admin: 12/04/19 23:24 Dose: Not Given Documented by: Metoprolol Tartrate (Lopressor) 5 mg IVPUSH ONETIME ONE Stop: 12/04/19 23:30 Last Admin: 12/04/19 23:35 Dose: 5 mg Documented by: Morphine Sulfate (Morphine) 4 mg IVPUSH ONETIME ONE Stop: 12/04/19 23:02 Last Admin: 12/04/19 23:15 Dose: 4 mg Documented by: Morphine Sulfate (Morphine) 2 mg IVPUSH Q3H PRN PRN Reason: Pain Last Admin: 12/05/19 09:15 Dose: 2 mg Documented by: Phenazopyridine HCl (Pyridium) 200 mg PO ONETIME ONE Stop: 12/07/19 10:13 Last Admin: 12/07/19 10:37 Dose: 200 mg Documented by: Potassium Chloride (Klor-Con M20) 40 meq PO ONETIME ONE Stop: 12/06/19 07:48 Last Admin: 12/06/19 08:21 Dose: 40 meq Documented by: - Plan Plan:: I have seen and evaluated the patient and agree with the residents note unless specified in my note
[2019-12-07 06:47] LABS: BLOOD UREA NITROGEN,BUN 9 mg/dL (7.0-18.0); CHLORIDE,CL 106 mmol/L (98-107); GLUCOSE RANDOM 84 mg/dL (74-106); POTASSIUM,K 3.6 mmol/L (3.5-5.1); SODIUM,NA 140 mmol/L (136-148)
[2019-12-07] MEDS: Sodium Chloride 0.9% 1,000 ML IV SCH (07:41)
[2019-12-07] MEDS: Acetaminophen 500 MG Tab PO PRN (08:12)
[2019-12-07] MEDS ORDERED: Phenazopyridine 200 MG Tab PO ONE (10:12)
[2019-12-07] MEDS: cefTRIAXone 2 GM in Premix Bag 1 BAG IV SCH (10:32)
--- NOTE | 2019-12-07 10:52 | PCM.DCSUM1 ---
Discharge Summary - Hospital Course Free Text/Narrative:: Patient is a 44 y.o male w. no significant PMH except GERD , presenting overnight with worsening hematuria and dysuria. Mentions sudden onset of baldder pain, hematuria and mid-stream pain yesterday; proceeded to the ED. ED course: found to be mildly tachycardic and given bolus of 1-liter NS+ 1 gram CTX and 5 mg Lopressor with improvement of tachycardia EKG: Sinus tachycardia w.o st elevation/depression CT abdomen/pelvis: slight haziness noted around bladder; possible cystitis. NO urethral stones/dilation appreciated Hospital course: received CTX in in ED, consulted Urology, recommending Levofloxacin; pt. however on following day did have an WBC increase to 13 (from 11), switched back to ceftriaxone; Urine cultures + for Citrobacter freudii; sensitive levofloxain; pt. discharge with levofloxacin, pyridium and zofran advised to drink plenty of fluids and avoid intercourse until infection has passed ; follow up with urology scheduled STD panel still pending at discharged but did receive 1 gram of Azithromycin on admission pt requested discharge discharged in stable condition - Discharge Data Discharge Date: 12/07/19 Discharge Disposition: Home, Self-Care 01 Condition: Good - Referral to Home Health Primary Care Physician: Stefan Kapadia MD - Patient Summary/Data Consults: Consultations 12/05/19 12:13 Consult to Physician [CONS] Routine - Discharge Plan *PRESCRIPTION DRUG MONITORING PROGRAM REVIEWED*: No *COPY OF PRESCRIPTION DRUG MONITORING REPORT IN PATIENT GUALBERTO: No Prescriptions/Med Rec: Hydrocodone/Acetaminophen [Hydrocodone-Acetamin 10-325 mg] 1 tab PO Q8HR PRN #12 tablet PRN Reason: Pain (Moderate 4-6) levoFLOXacin [Levaquin] 750 mg PO DAILY 14 Days #14 tablet Phenazopyridine [Pyridium] 200 mg PO BID PRN 3 Days #6 tab PRN Reason: Pain Home Medications: Home Meds Multivitamin [Multi-Vitamin Daily] 1 each PO DAILY 04/11/15 [History] Omeprazole 1 tab PO DAILY 06/02/15 [History] Hydrocodone/Acetaminophen [Hydrocodone-Acetamin 10-325 mg] 1 tab PO Q8HR PRN #12 tablet 12/04/19 [Rx] Acetaminophen [Tylenol Extra Strength] 500 mg PO Q4H PRN tablet 12/07/19 [Rx] Phenazopyridine [Pyridium] 200 mg PO BID PRN 3 Days #6 tab 12/07/19 [Rx] levoFLOXacin [Levaquin] 750 mg PO DAILY 14 Days #14 tablet 12/07/19 [Rx] Patient Handouts: Hydrocodone extended-release tablets, Phenazopyridine tablets, Levofloxacin tablets, Hematuria, Adult Referrals: [facility] [Outside] - 12/27/19 2:15 pm Stefan Kapadia MD [Primary Care Provider] - 12/11/19 7:30 am - Discharge Summary/Plan Comment DC Time >30 min.: No - Patient Data Vitals - Most Recent: Last Vital Signs Temp 98.4 F 12/07/19 07:47 Pulse 88 12/07/19 07:47 Resp 15 12/07/19 07:47 BP 122/78 12/07/19 07:47 Pulse Ox 95 12/07/19 07:47 Weight - Most Recent: 104.236 kg I&O - Last 24 hours: Intake & Output 12/06/19 12/07/19 12/07/19 22:59 06:59 14:59 Intake Total 620 2028 Output Total 1875 925 Balance -1255 1103 Lab Results - Last 24 hrs: Laboratory Results - last 24 hr 12/07/19 12/07/19 Range/Units 05:40 05:40 WBC 9.23 (4.0-11.0) K/uL RBC 4.16 L (4.50-5.90) M/uL Hgb 12.5 L (13.0-17.0) g/dL Hct 38.3 (38.0-50.0) % MCV 92.1 (80.0-98.0) fL MCH 30.0 (27.0-32.0) pg MCHC 32.6 (31.0-37.0) g/dL RDW Std Deviation 45.1 (28.0-62.0) fl RDW Coeff of Maggy 14 (11.0-15.0) % Plt Count 227 (150-400) K/uL MPV 8.90 (7.40-12.00) fL Neut % (Auto) 72.4 (48.0-80.0) % Lymph % (Auto) 17.0 (16.0-40.0) % [place] % (Auto) 8.9 (0.0-15.0) % Eos % (Auto) 1.3 (0.0-7.0) % Baso % (Auto) 0.4 (0.0-1.5) % Neut # (Auto) 6.7 H (1.4-5.7) K/uL Lymph # (Auto) 1.6 (0.6-2.4) K/uL [place] # (Auto) 0.8 (0.0-0.8) K/uL Eos # (Auto) 0.1 (0.0-0.7) K/uL Baso # (Auto) 0.0 (0.0-0.1) K/uL Nucleated RBC % 0.0 /100WBC Nucleated RBCs # 0 K/uL Sodium 140 (136-148) mmol/L Potassium 3.6 (3.5-5.1) mmol/L Chloride 106 (98-107) mmol/L Carbon Dioxide 26.0 (21.0-32.0) mmol/L BUN 9 (7.0-18.0) mg/dL Creatinine 0.8 (0.8-1.3) mg/dL Est Cr Clr Drug Dosing 115.19 mL/min Estimated GFR (MDRD) > 60.0 ml/min Glucose 84 (74-106) mg/dL Calcium 8.3 L (8.5-10.1) mg/dL BLAS Results - Last 24 hrs: Microbiology 12/05/19 08:00 Aerobic Blood Culture - Preliminary Blood - Venous - Lab Draw NO GROWTH AFTER 2 DAYS Anaerobic Blood Culture - Preliminary NO GROWTH AFTER 2 DAYS 12/05/19 07:55 Aerobic Blood Culture - Preliminary Blood - Venous NO GROWTH AFTER 2 DAYS Anaerobic Blood Culture - Preliminary NO GROWTH AFTER 2 DAYS 12/04/19 16:42 Urine Culture - Final Urine, Clean Catch Citrobacter Freundii 12/06/19 12:55 C. difficile Antigen & Toxins A,B - Final Stool / Feces Med Orders - Current: Current Medications Acetaminophen (Tylenol Extra Strength) 500 mg PO Q4H PRN PRN Reason: Fever Last Admin: 12/07/19 08:12 Dose: 500 mg Documented by: Sodium Chloride (Normal Saline) 1,000 mls @ 125 mls/hr IV ASDIRECTED BENI Last Admin: 12/07/19 07:41 Dose: 125 mls/hr Documented by: Ceftriaxone Sodium/Dextrose 2 (gm/ Premix) 50 mls @ 100 mls/hr IV Q24H [facility] Last Admin: 12/07/19 10:32 Dose: 100 mls/hr Documented by: Morphine Sulfate (Morphine) 2 mg IVPUSH Q3H PRN PRN Reason: Pain Last Admin: 12/05/19 09:15 Dose: 2 mg Documented by: Discontinued Medications Azithromycin (Zithromax) 1,000 mg PO ONETIME ONE Stop: 12/05/19 09:56 Last Admin: 12/05/19 10:52 Dose: 1,000 mg Documented by: Cephalexin (Keflex) 500 mg PO ONETIME ONE Stop: 12/04/19 20:00 Last Admin: 12/04/19 20:37 Dose: 500 mg Documented by: Fentanyl (Sublimaze) 50 mcg IVPUSH ONETIME ONE Stop: 12/04/19 19:59 Last Admin: 12/04/19 20:35 Dose: 50 mcg Documented by: Sodium Chloride (Normal Saline) 1,000 mls @ 999 mls/hr IV STAT ONE Stop: 12/04/19 20:58 Last Admin: 12/04/19 20:30 Dose: 999 mls/hr Documented by: Sodium Chloride (Normal Saline) 1,000 mls @ 999 mls/hr IV .BOLUS ONE Stop: 12/04/19 23:31 Last Admin: 12/04/19 23:14 Dose: 999 mls/hr Documented by: Metoprolol Tartrate 5 mg/ (Sodium Chloride) 55 mls @ 100 mls/hr IV ONETIME ONE Stop: 12/04/19 23:33 Last Admin: 12/04/19 23:29 Dose: Not Given Documented by: Ceftriaxone Sodium/Dextrose 1 (gm/ Premix) 50 mls @ 100 mls/hr IV Q24H [facility] Ceftriaxone Sodium/Dextrose 1 (gm/ Premix) 50 mls @ 100 mls/hr IV ONETIME ONE Stop: 12/05/19 01:59 Last Admin: 12/05/19 02:40 Dose: 100 mls/hr Documented by: Levofloxacin/Dextrose 750 mg/ (Premix) 150 mls @ 100 mls/hr IV Q24H [facility] Last Infusion: 12/05/19 17:28 Dose: Infused Documented by: Sodium Chloride (Normal Saline) 1,000 mls @ 500 mls/hr IV BOLUS ONE Stop: 12/05/19 18:55 Last Admin: 12/05/19 18:10 Dose: 500 mls/hr Documented by: Metoprolol Tartrate (Lopressor) Confirm Administered Dose 5 mg .ROUTE .STK-MED ONE Stop: 12/04/19 23:09 Last Admin: 12/04/19 23:24 Dose: Not Given Documented by: Metoprolol Tartrate (Lopressor) 5 mg IVPUSH ONETIME ONE Stop: 12/04/19 23:30 Last Admin: 12/04/19 23:35 Dose: 5 mg Documented by: Morphine Sulfate (Morphine) 4 mg IVPUSH ONETIME ONE Stop: 12/04/19 23:02 Last Admin: 12/04/19 23:15 Dose: 4 mg Documented by: Phenazopyridine HCl (Pyridium) 200 mg PO ONETIME ONE Stop: 12/07/19 10:13 Last Admin: 12/07/19 10:37 Dose: 200 mg Documented by: Potassium Chloride (Klor-Con M20) 40 meq PO ONETIME ONE Stop: 12/06/19 07:48 Last Admin: 12/06/19 08:21 Dose: 40 meq Documented by:
[2019-12-07 11:29] VITALS: BP 135/73; PULSE 94
[2019-12-08 17:02] LABS: C.TRACHOMATIS BY TMA Negative (Negative); N.GONORRHOEAE BY TMA Negative (Negative)
== END 2019-12-07 13:40 | disposition home or self-care (01) | DRG 463 ==
LOC: MW.ED 15:56 → MW.MS 12-05 00:30 → OBSVTOIN 12-06 10:24 → MW.MS 12-06 16:13
PROVIDERS: ADMIT Internal Medicine; ATTEND Internal Medicine
DX: N30.01 Acute cystitis with hematuria (principal); K21.9 Gastro-esophageal reflux disease without esophagitis; R00.0 Tachycardia, unspecified; F32.9 Major depressive disorder, single episode, unspecified; B96.89 Other specified bacterial agents as the cause of diseases classified elsewhere; Z79.899 Other long term (current) drug therapy; Z20.828 Contact with and (suspected) exposure to other viral communicable diseases
CPT/HCPCS: 36415; 74176; 74176-26; 80048; 80053; 81001; 82550; 83605; 84484; 85025; 87040; 87086; 87088; 87186; 87324; 87491; 87591; 93005; 96361; 96374; 96375; 99282; 99285-25; A9270-GY; J0696; J1956; J2270; J3010; J3490; J7030; U0002

== ENCOUNTER 2023-10-24 08:35 | Day surgery (SDC) | payer BC ==
[~2023-10-24 08:35] MED LIST: Albuterol 0.083% 2.5 MG/3 ML Neb Soln NEB PRN; HYDROmorphone 1 MG/ML Syringe IVPUSH PRN; Metoclopramide 10 MG/2 ML SDV IVPUSH PRN; Morphine 2 MG/ML SYRINGE IVPUSH PRN; Naloxone 0.4 MG/ML SDV IVPUSH PRN; Ondansetron 4 MG/2 ML SDV IVPUSH PRN; droPERidol 5 MG/2 ML SDV IVPUSH PRN; fentaNYL 50 MCG/ML SDV IVPUSH PRN
[2023-10-24] MEDS: Lactated Ringers 1,000 ML IV SCH (09:06)
[2023-10-24] MEDS ORDERED: Lidocaine 1% 20 ML MDV ONE (09:09)
[2023-10-24] MEDS ORDERED: Bupivacaine 0.5% 30 ML SDV ONE (09:09)
[2023-10-24] MEDS ORDERED: Propofol 200 MG/20 ML SDV ONE (09:19)
[2023-10-24] MEDS ORDERED: fentaNYL 250 MCG/5 ML SDV ONE (09:19)
[2023-10-24] MEDS ORDERED: Lidocaine 2% 5 ML SDV ONE (09:41)
[2023-10-24] MEDS ORDERED: Lactated Ringers 1,000 ML IV SCH (10:45)
[2023-10-24 11:26] VITALS: BP 113/77; PULSE 73
== END 2023-10-24 11:35 | disposition home or self-care (01) ==
LOC: MW.SDS 08:35
PROVIDERS: ATTEND Surgery
DX: L72.0 Epidermal cyst (principal); K21.9 Gastro-esophageal reflux disease without esophagitis; E78.00 Pure hypercholesterolemia, unspecified; Z79.899 Other long term (current) drug therapy
CPT/HCPCS: 11423; J0665; J2704; J3010; J7120; 00300; J3490